=== PATIENT | male | born 1960 | race Caucasian/White ===

== ENCOUNTER → 2018-08-26 | Outpatient (CLI) | payer BC ==
--- NOTE | 2018-08-27 09:07 | XR ---
EXAMINATION TYPE: XR shoulder complete RT DATE OF EXAM: 08/26/2018 COMPARISON: NONE HISTORY: Pain TECHNIQUE: Three views are submitted. FINDINGS: The osseous structures are intact. There is no acute fracture or dislocation. Arthropathy of the AC joint noted.. IMPRESSION: 1. AC joint arthropathy correlate with MRI as clinically warranted..
== END | disposition home or self-care (01) ==
LOC: RADXRMAIN 17:58
PROVIDERS: ATTEND Family Medicine
DX: M19.011 Primary osteoarthritis, right shoulder (principal)

== ENCOUNTER 2020-06-03 08:46 | Day surgery (SDC) | payer BC ==
[2020-06-02 09:40] VITALS: BMI 23.8
[~2020-06-03 08:46] MED LIST: LACTATED RINGERS 1,000 ML IV SCH; LIDOCAINE 1% (10MG/ML) FOR IV START INTRADERMA PRN
[2020-06-03 09:02] VITALS: RESP 16
[2020-06-03 09:04] VITALS: TEMP 98.5
[2020-06-03] MEDS ORDERED: PROPOFOL 10 MG/ML 20 ML VIAL IV ONE (09:37)
[2020-06-03] MEDS ORDERED: MIDAZOLAM 2 MG/2 ML VIAL ONE (09:37)
--- NOTE | 2020-06-03 09:56 | P.PCN ---
Date of Procedure: 06/03/20 Procedure(s) Performed: BRIEF HISTORY: Patient is a 59-year-old pleasant white male scheduled for an elective colonoscopy as a part of screening for colorectal neoplasia. PROCEDURE PERFORMED: Colonoscopy. PREOPERATIVE DIAGNOSIS: Screening for colon cancer. IV sedation per Anesthesia. PROCEDURE: After informed consent was obtained, the patient, was brought into the endoscopy unit. IV sedation was administered by Anesthesia under continuous monitoring. Digital rectal examination was normal. Initially the Olympus CF-160 flexible video colonoscope was then inserted in the rectum, gradually advanced into the cecum without any difficulty. Careful examination was performed as the scope was gradually being withdrawn. Ileocecal valve and the appendiceal orifice were visualized and appeared normal. Prep was excellent. Mucosa of the cecum, ascending colon, transverse colon, descending colon, sigmoid colon, and rectum appeared normal. Scattered sigmoid diverticulosis. Retroflexion was performed in the rectum and no lesions were seen. The patient tolerated the procedure well. IMPRESSION: Normal-appearing colon from rectum to cecum with no evidence of colorectal neoplasia . Scattered sigmoid diverticulosis. RECOMMENDATIONS: Findings of this examination were discussed with the patient a s well as his family. He was advised to have a repeat screening colonoscopy in 10 years
[2020-06-03 10:17] VITALS: BP 117/81; PULSE 85
== END 2020-06-03 10:49 | disposition home or self-care (01) ==
LOC: ORWHC2ENDO 08:46
PROVIDERS: ATTEND Internal Medicine Gastroenterology
DX: Z12.11 Encounter for screening for malignant neoplasm of colon (principal); K57.30 Diverticulosis of large intestine without perforation or abscess without bleeding; E78.5 Hyperlipidemia, unspecified; Z79.899 Other long term (current) drug therapy; Z95.2 Presence of prosthetic heart valve
CPT/HCPCS: J2250; J2704; G0121

== ENCOUNTER → 2024-06-18 | Outpatient (CLI) | payer BC ==
[2024-06-18 15:31] LABS: Basophils # (A) 0.04 X 10*3/uL (0.00-0.10); Basophils % (A) 0.4 %; Eosinophils # (A) 0.09 X 10*3/uL (0.04-0.35); Eosinophils % (A) 0.8 %; HCT 30.8 % (39.6-50.0); HGB 9.5 g/dL (13.0-17.0); Lymphocytes # (A) 1.56 X 10*3/uL (0.90-5.00); Lymphocytes % (A) 13.7 %; MCH 31.9 pg (27.0-32.0); MCHC 30.8 g/dL (32.0-37.0); MCV 103.4 FL (80.0-97.0); Mean Platelet Volume 10.8 FL (9.5-12.2); Monocytes # (A) 1.19 X 10*3/uL (0.20-1.00); Monocytes % (A) 10.4 %; NRBC Per 100 WBC 0 X 10*3/uL (0.00-0.01); Neutrophils % (A) 74.4 %; Platelet Count 466 X 10*3/uL (140-440); RBC 2.98 X 10*6/uL (4.40-5.60); RDW 13.4 % (11.5-14.5); WBC 11.41 X 10*3/uL (4.50-10.00)
== END | disposition home or self-care (01) ==
LOC: LABWHC1 09:09
PROVIDERS: ATTEND Nurse Practitioner Acute Care
DX: Z95.2 Presence of prosthetic heart valve (principal)
CPT/HCPCS: 36415; 85025

== ENCOUNTER → 2024-06-25 | Outpatient (CLI) | payer BC ==
[2024-06-25 15:47] LABS: ALT 61 U/L (10-49); AST 29 U/L (14-35); Albumin 3.7 g/dL (3.8-4.9); Albumin/Globulin Ratio 1.37 Ratio (1.60-3.17); Alkaline Phosphatase 156 U/L (41-126); BUN/Creat Ratio 20.25 Ratio (12.00-20.00); Blood Urea Nitrogen 24.3 mg/dL (9.0-27.0); Calcium 9.1 mg/dL (8.7-10.3); Chloride 107 mmol/L (96-109); Globulin 2.7 g/dL (1.6-3.3); Glucose 105 mg/dL (70-110); Potassium 4.6 mmol/L (3.5-5.5); Sodium 141 mmol/L (135-145); Total Bilirubin 0.3 mg/dL (0.3-1.2); Total Protein 6.4 g/dL (6.2-8.2)
[2024-06-25 16:40] LABS: Basophils # (A) 0.05 X 10*3/uL (0.00-0.10); Basophils % (A) 0.5 %; Eosinophils # (A) 0.12 X 10*3/uL (0.04-0.35); Eosinophils % (A) 1.2 %; HGB 10.2 g/dL (13.0-17.0); Lymphocytes # (A) 1.36 X 10*3/uL (0.90-5.00); MCH 32.4 pg (27.0-32.0); MCHC 30.9 g/dL (32.0-37.0); MCV 104.8 FL (80.0-97.0); Mean Platelet Volume 10.9 FL (9.5-12.2); Monocytes # (A) 1.03 X 10*3/uL (0.20-1.00); Monocytes % (A) 10.6 %; NRBC Per 100 WBC 0 X 10*3/uL (0.00-0.01); Neutrophils # (A) 7.09 X 10*3/uL (1.80-7.70); Neutrophils % (A) 73.4 %; Platelet Count 336 X 10*3/uL (140-440); RBC 3.15 X 10*6/uL (4.40-5.60); RDW 14.1 % (11.5-14.5); WBC 9.68 X 10*3/uL (4.50-10.00)
== END | disposition home or self-care (01) ==
LOC: LABWHC1 09:51
PROVIDERS: ATTEND Thoracic Surgery (Cardiothoracic Vascular Surgery)
DX: R74.8 Abnormal levels of other serum enzymes (principal); N17.9 Acute kidney failure, unspecified; D64.9 Anemia, unspecified
CPT/HCPCS: 36415; 80053; 85025